=== PATIENT | male | born 1955 | race Caucasian/White ===

== ENCOUNTER → 2023-05-18 06:37 | Outpatient (REF) | payer BC, SELFPAY ==
[2023-05-18 07:49] LABS: % Basophils 0.5 % (0-2); % Eosinophils 4.5 % (0-6); % Immature Granulocytes 0.3 % (0-0.5); % Lymphocytes 16.8 % (20.5-51.1); % Monocytes 15.3 % (1.7-9.3); % Neutrophils 62.6 % (42.2-75.2); Absolute Eosinophils 0.3 10^3/uL (0-0.7); Absolute Monocytes 0.9 10^3/uL (0.1-0.6); Absolute Neutrophils 3.7 10^3/uL (1.4-6.5); Hematocrit 38.4 % (39.0-52.0); Hemoglobin 13.2 g/dL (13.0-18.0); Mean Corp Hgb Conc. 34.4 g/dL (33.0-37.0); Mean Corpuscular Hgb 31.4 pg (27.0-31.0); Mean Corpuscular Volume 91.4 fL (80.0-94.0); Nucleated Red Blood Cells % 0 % (-); Platelet Count 173 10^3/uL (130-400); Red Cell Dist. Width 12.8 % (11.5-14.5); White Blood Cell Count 5.8 10^3/uL (4.8-10.8)
[2023-05-18 08:02] LABS: ALT (SGPT) 18 U/L (0-50); AST (SGOT) 27 U/L (17-59); Albumin 4.3 g/dl (3.5-5.0); Alkaline Phosphatase 89 U/L (38-126); Blood Urea Nitrogen 43 mg/dl (9-20); Calcium 9.4 mg/dl (8.4-10.2); Carbon Dioxide 28 mmol/L (22-30); Chloride 100 mmol/L (98-107); Glucose 99 mg/dl (70-99); Potassium 4.2 mmol/L (3.5-5.1); Sodium 135 mmol/L (135-145); Total Bilirubin 1.6 mg/dl (0.2-1.3); eGFR 37.95
[2023-05-18 08:35] LABS: TSH Reflex To Free T4 3.28 uIU/ml (0.47-4.68)
== END ==
LOC: REG 06:37
PROVIDERS: ATTENDING PHYSICIAN Internal Medicine Hematology & Oncology; FAMILY PHYSICIAN Internal Medicine
DX: C64.2 Malignant neoplasm of left kidney, except renal pelvis (principal)
CPT/HCPCS: 36415; 80053; 84443; 85025

== ENCOUNTER → 2023-06-29 06:45 | Outpatient (REF) | payer BC, SELFPAY ==
[2023-06-29 07:27] LABS: % Basophils 0.6 % (0-2); % Eosinophils 4.8 % (0-6); % Immature Granulocytes 0.2 % (0-0.5); % Lymphocytes 20.6 % (20.5-51.1); % Monocytes 13.7 % (1.7-9.3); % Neutrophils 60.1 % (42.2-75.2); Absolute Eosinophils 0.3 10^3/uL (0-0.7); Absolute Lymphocytes 1.1 10^3/uL (1.2-3.4); Absolute Monocytes 0.7 10^3/uL (0.1-0.6); Absolute Neutrophils 3.3 10^3/uL (1.4-6.5); Hematocrit 41.2 % (39.0-52.0); Hemoglobin 14.1 g/dL (13.0-18.0); Mean Corp Hgb Conc. 34.2 g/dL (33.0-37.0); Mean Corpuscular Hgb 31.4 pg (27.0-31.0); Mean Corpuscular Volume 91.8 fL (80.0-94.0); Mean Platelet Volume 10.8 fL (7.4-10.4); Nucleated Red Blood Cells % 0 % (-); Platelet Count 178 10^3/uL (130-400); Red Blood Cell Count 4.49 10^6/uL (4.70-6.10); Red Cell Dist. Width 12.4 % (11.5-14.5); White Blood Cell Count 5.4 10^3/uL (4.8-10.8)
[2023-06-29 07:40] LABS: ALT (SGPT) 17 U/L (0-50); AST (SGOT) 24 U/L (17-59); Albumin 4.4 g/dl (3.5-5.0); Alkaline Phosphatase 92 U/L (38-126); Blood Urea Nitrogen 44 mg/dl (9-20); Calcium 9.6 mg/dl (8.4-10.2); Carbon Dioxide 29 mmol/L (22-30); Chloride 98 mmol/L (98-107); Glucose 98 mg/dl (70-99); Potassium 3.8 mmol/L (3.5-5.1); Sodium 138 mmol/L (135-145); Total Bilirubin 1.9 mg/dl (0.2-1.3); Total Protein 7.1 g/dl (6.3-8.2); eGFR 40.49
[2023-06-29 08:04] LABS: TSH 4.06 uIU/ml (0.47-4.68)
== END ==
LOC: REG 06:45
PROVIDERS: ATTENDING PHYSICIAN Internal Medicine Hematology & Oncology; FAMILY PHYSICIAN Internal Medicine
DX: C64.2 Malignant neoplasm of left kidney, except renal pelvis (principal)
CPT/HCPCS: 36415; 80053; 84443; 85025

== ENCOUNTER → 2023-08-10 06:39 | Outpatient (REF) | payer BC, SELFPAY ==
[2023-08-10 07:28] LABS: % Basophils 0.6 % (0-2); % Eosinophils 4.2 % (0-6); % Immature Granulocytes 0.2 % (0-0.5); % Lymphocytes 18.8 % (20.5-51.1); % Monocytes 10.9 % (1.7-9.3); % Neutrophils 65.3 % (42.2-75.2); Absolute Eosinophils 0.2 10^3/uL (0-0.7); Absolute Monocytes 0.6 10^3/uL (0.1-0.6); Absolute Neutrophils 3.6 10^3/uL (1.4-6.5); Hematocrit 42.1 % (39.0-52.0); Hemoglobin 14.1 g/dL (13.0-18.0); Mean Corp Hgb Conc. 33.5 g/dL (33.0-37.0); Mean Corpuscular Hgb 31.4 pg (27.0-31.0); Mean Corpuscular Volume 93.8 fL (80.0-94.0); Mean Platelet Volume 11.1 fL (7.4-10.4); Nucleated Red Blood Cells % 0 % (-); Platelet Count 157 10^3/uL (130-400); Red Blood Cell Count 4.49 10^6/uL (4.70-6.10); Red Cell Dist. Width 12.4 % (11.5-14.5); White Blood Cell Count 5.4 10^3/uL (4.8-10.8)
[2023-08-10 08:07] LABS: ALT (SGPT) 21 U/L (0-50); AST (SGOT) 25 U/L (17-59); Albumin 4.5 g/dl (3.5-5.0); Alkaline Phosphatase 84 U/L (38-126); Blood Urea Nitrogen 43 mg/dl (9-20); Calcium 9.9 mg/dl (8.4-10.2); Carbon Dioxide 29 mmol/L (22-30); Chloride 101 mmol/L (98-107); Glucose 101 mg/dl (70-99); Potassium 4.5 mmol/L (3.5-5.1); Sodium 136 mmol/L (135-145); Total Bilirubin 1.8 mg/dl (0.2-1.3); Total Protein 7.3 g/dl (6.3-8.2); eGFR 40.49
== END ==
LOC: REG 06:39
PROVIDERS: ATTENDING PHYSICIAN Internal Medicine Hematology & Oncology; FAMILY PHYSICIAN Internal Medicine
DX: C64.2 Malignant neoplasm of left kidney, except renal pelvis (principal)
CPT/HCPCS: 36415; 80053; 84443; 85025

== ENCOUNTER → 2023-09-21 06:39 | Outpatient (REF) | payer BC, SELFPAY ==
[2023-09-21 08:02] LABS: % Basophils 0.5 % (0-2); % Eosinophils 3.3 % (0-6); % Immature Granulocytes 0.3 % (0-0.5); % Lymphocytes 17.9 % (20.5-51.1); % Monocytes 12.4 % (1.7-9.3); % Neutrophils 65.6 % (42.2-75.2); Absolute Eosinophils 0.2 10^3/uL (0-0.7); Absolute Lymphocytes 1.1 10^3/uL (1.2-3.4); Absolute Monocytes 0.7 10^3/uL (0.1-0.6); Absolute Neutrophils 3.9 10^3/uL (1.4-6.5); Hematocrit 41.1 % (39.0-52.0); Hemoglobin 14.2 g/dL (13.0-18.0); Mean Corp Hgb Conc. 34.5 g/dL (33.0-37.0); Mean Corpuscular Hgb 31.3 pg (27.0-31.0); Mean Corpuscular Volume 90.5 fL (80.0-94.0); Mean Platelet Volume 11.1 fL (7.4-10.4); Nucleated Red Blood Cells % 0 % (-); Platelet Count 178 10^3/uL (130-400); Red Blood Cell Count 4.54 10^6/uL (4.70-6.10); Red Cell Dist. Width 12.5 % (11.5-14.5)
[2023-09-21 08:48] LABS: ALT (SGPT) 18 U/L (0-50); AST (SGOT) 25 U/L (17-59); Albumin 4.5 g/dl (3.5-5.0); Alkaline Phosphatase 90 U/L (38-126); Blood Urea Nitrogen 46 mg/dl (9-20); Carbon Dioxide 25 mmol/L (22-30); Chloride 100 mmol/L (98-107); Glucose 94 mg/dl (70-99); Sodium 138 mmol/L (135-145); Total Bilirubin 1.7 mg/dl (0.2-1.3); Total Protein 7.2 g/dl (6.3-8.2); eGFR 31.83
[2023-09-21 09:12] LABS: TSH 3.49 uIU/ml (0.47-4.68)
== END ==
LOC: REG 06:39
PROVIDERS: ATTENDING PHYSICIAN Internal Medicine Hematology & Oncology; FAMILY PHYSICIAN Internal Medicine
DX: C64.2 Malignant neoplasm of left kidney, except renal pelvis (principal)
CPT/HCPCS: 36415; 80053; 84443; 85025

== ENCOUNTER → 2023-10-15 06:49 | Outpatient (REF) | payer BC, SELFPAY ==
[2023-10-16 14:41] LABS: PSA Total 4.4 ng/mL (0.0-4.0)
== END ==
LOC: REG 06:49
PROVIDERS: ATTENDING PHYSICIAN Specialist; FAMILY PHYSICIAN Internal Medicine
DX: R97.20 Elevated prostate specific antigen [PSA] (principal)
CPT/HCPCS: 36415; 84153; 84154

== ENCOUNTER → 2023-11-02 06:25 | Outpatient (REF) | payer BC, SELFPAY ==
[2023-11-02 07:44] LABS: Hematocrit 39.9 % (39.0-52.0); Mean Corp Hgb Conc. 35.1 g/dL (33.0-37.0); Mean Corpuscular Hgb 31.8 pg (27.0-31.0); Mean Corpuscular Volume 90.7 fL (80.0-94.0); Red Cell Dist. Width 12.6 % (11.5-14.5); White Blood Cell Count 5.8 10^3/uL (4.8-10.8)
[2023-11-02 07:45] LABS: % Basophils 0.5 % (0-2); % Eosinophils 4.1 % (0-6); % Immature Granulocytes 0.2 % (0-0.5); % Lymphocytes 18.8 % (20.5-51.1); % Monocytes 11.3 % (1.7-9.3); % Neutrophils 65.1 % (42.2-75.2); Absolute Eosinophils 0.2 10^3/uL (0-0.7); Absolute Lymphocytes 1.1 10^3/uL (1.2-3.4); Absolute Monocytes 0.7 10^3/uL (0.1-0.6); Absolute Neutrophils 3.8 10^3/uL (1.4-6.5); Nucleated Red Blood Cells % 0 % (-)
[2023-11-02 07:58] LABS: ALT (SGPT) 19 U/L (0-50); AST (SGOT) 23 U/L (17-59); Albumin 4.2 g/dl (3.5-5.0); Alkaline Phosphatase 93 U/L (38-126); Blood Urea Nitrogen 41 mg/dl (9-20); Calcium 9.4 mg/dl (8.4-10.2); Carbon Dioxide 27 mmol/L (22-30); Chloride 100 mmol/L (98-107); Glucose 103 mg/dl (70-99); Sodium 137 mmol/L (135-145); Total Bilirubin 1.4 mg/dl (0.2-1.3); Total Protein 6.7 g/dl (6.3-8.2); eGFR 40.24
[2023-11-02 08:23] LABS: TSH Reflex To Free T4 3.71 uIU/ml (0.47-4.68)
== END ==
LOC: REG 06:25
PROVIDERS: ATTENDING PHYSICIAN Internal Medicine Hematology & Oncology; FAMILY PHYSICIAN Internal Medicine
DX: C64.2 Malignant neoplasm of left kidney, except renal pelvis (principal)
CPT/HCPCS: 36415; 80053; 84443; 85025

== ENCOUNTER → 2023-12-03 07:17 | Outpatient (REF) | payer BC, SELFPAY | LOC: RAD 07:17 | PROVIDERS: ATTENDING PHYSICIAN Nurse Practitioner Primary Care; FAMILY PHYSICIAN Internal Medicine; REFERRING PHYSICIAN Internal Medicine Hematology & Oncology | DX: C64.2 Malignant neoplasm of left kidney, except renal pelvis (principal) | CPT/HCPCS: 71260; 74160; Q9967 ==

== ENCOUNTER → 2023-12-18 06:36 | Outpatient (REF) | payer BC, SELFPAY ==
[2023-12-18 07:57] LABS: ALT (SGPT) 16 U/L (0-50); AST (SGOT) 22 U/L (17-59); Alkaline Phosphatase 83 U/L (38-126); Blood Urea Nitrogen 44 mg/dl (9-20); Calcium 9.5 mg/dl (8.4-10.2); Carbon Dioxide 28 mmol/L (22-30); Chloride 100 mmol/L (98-107); Glucose 106 mg/dl (70-99); Potassium 3.6 mmol/L (3.5-5.1); Sodium 141 mmol/L (135-145); Total Bilirubin 1.5 mg/dl (0.2-1.3); Total Protein 6.6 g/dl (6.3-8.2); eGFR 37.71
[2023-12-18 08:28] LABS: TSH Reflex To Free T4 3.58 uIU/ml (0.47-4.68)
[2023-12-18 09:15] LABS: % Basophils 0.5 % (0-2); % Eosinophils 5.5 % (0-6); % Immature Granulocytes 0.3 % (0-0.5); % Lymphocytes 16.5 % (20.5-51.1); % Monocytes 12.7 % (1.7-9.3); % Neutrophils 64.5 % (42.2-75.2); Absolute Eosinophils 0.4 10^3/uL (0-0.7); Absolute Lymphocytes 1.1 10^3/uL (1.2-3.4); Absolute Monocytes 0.8 10^3/uL (0.1-0.6); Absolute Neutrophils 4.3 10^3/uL (1.4-6.5); Hematocrit 39.7 % (39.0-52.0); Hemoglobin 13.5 g/dL (13.0-18.0); Mean Corpuscular Hgb 31.8 pg (27.0-31.0); Mean Corpuscular Volume 93.4 fL (80.0-94.0); Mean Platelet Volume 11.1 fL (7.4-10.4); Nucleated Red Blood Cells % 0 % (-); Platelet Count 174 10^3/uL (130-400); Red Blood Cell Count 4.25 10^6/uL (4.70-6.10); Red Cell Dist. Width 12.6 % (11.5-14.5); White Blood Cell Count 6.6 10^3/uL (4.8-10.8)
== END ==
LOC: REG 06:36
PROVIDERS: ATTENDING PHYSICIAN Internal Medicine Hematology & Oncology; FAMILY PHYSICIAN Internal Medicine
DX: C64.2 Malignant neoplasm of left kidney, except renal pelvis (principal)
CPT/HCPCS: 36415; 80053; 84443; 85025

== ENCOUNTER 2024-03-10 06:36 | Day surgery (SDC) | payer BC, SELFPAY | END 2024-03-10 08:47 | disposition home or self-care (01) | LOC: GI 06:36 | PROVIDERS: ATTENDING PHYSICIAN Internal Medicine Gastroenterology; FAMILY PHYSICIAN Internal Medicine | DX: Z12.11 Encounter for screening for malignant neoplasm of colon (principal); D12.2 Benign neoplasm of ascending colon; K63.89 Other specified diseases of intestine; K64.8 Other hemorrhoids; Z86.0101 Personal history of adenomatous and serrated colon polyps | CPT/HCPCS: 45385; 45380; 88305; 88312 ==

== ENCOUNTER → 2024-03-18 06:48 | Outpatient (REF) | payer BC, SELFPAY ==
[2024-03-18 08:25] LABS: ALT (SGPT) 18 U/L (0-50); AST (SGOT) 22 U/L (17-59); Albumin 4.4 g/dl (3.5-5.0); Alkaline Phosphatase 86 U/L (38-126); Blood Urea Nitrogen 40 mg/dl (9-20); Calcium 9.4 mg/dl (8.4-10.2); Carbon Dioxide 29 mmol/L (22-30); Chloride 101 mmol/L (98-107); Glucose 107 mg/dl (70-99); Potassium 4.4 mmol/L (3.5-5.1); Sodium 140 mmol/L (135-145); Total Bilirubin 1.3 mg/dl (0.2-1.3); Total Protein 7.1 g/dl (6.3-8.2); eGFR 35.46
[2024-03-18 08:48] LABS: TSH Reflex To Free T4 3.36 uIU/ml (0.47-4.68)
[2024-03-18 08:50] LABS: % Basophils 0.4 % (0-2); % Immature Granulocytes 0.4 % (0-0.5); % Lymphocytes 17.1 % (20.5-51.1); % Monocytes 12.4 % (1.7-9.3); % Neutrophils 65.7 % (42.2-75.2); Absolute Eosinophils 0.2 10^3/uL (0-0.7); Absolute Lymphocytes 0.9 10^3/uL (1.2-3.4); Absolute Monocytes 0.7 10^3/uL (0.1-0.6); Absolute Neutrophils 3.6 10^3/uL (1.4-6.5); Hematocrit 42.3 % (39.0-52.0); Hemoglobin 13.9 g/dL (13.0-18.0); Mean Corp Hgb Conc. 32.9 g/dL (33.0-37.0); Mean Corpuscular Hgb 30.5 pg (27.0-31.0); Mean Platelet Volume 10.8 fL (7.4-10.4); Nucleated Red Blood Cells % 0 % (-); Platelet Count 191 10^3/uL (130-400); Red Blood Cell Count 4.55 10^6/uL (4.70-6.10); Red Cell Dist. Width 12.3 % (11.5-14.5); White Blood Cell Count 5.5 10^3/uL (4.8-10.8)
== END ==
LOC: REG 06:48
PROVIDERS: ATTENDING PHYSICIAN Internal Medicine Hematology & Oncology; FAMILY PHYSICIAN Internal Medicine
DX: C64.2 Malignant neoplasm of left kidney, except renal pelvis (principal)
CPT/HCPCS: 36415; 80053; 84443; 85025

== ENCOUNTER → 2024-04-17 06:36 | Outpatient (REF) | payer BC, SELFPAY ==
[2024-04-18 10:19] LABS: PSA Total 5.2 ng/mL (0.0-4.0)
== END ==
LOC: REG 06:36
PROVIDERS: ATTENDING PHYSICIAN Specialist; FAMILY PHYSICIAN Internal Medicine
DX: R97.20 Elevated prostate specific antigen [PSA] (principal)
CPT/HCPCS: 36415; 84153; 84154

== ENCOUNTER 2024-05-17 10:55 | Emergency (ER) | payer BC, SELFPAY ==
[2024-05-17 11:02] VITALS: BP 119/65
[2024-05-17 11:27] LABS: % Basophils 0.2 % (0-2); % Immature Granulocytes 0.2 % (0-0.5); % Lymphocytes 6.9 % (20.5-51.1); % Neutrophils 82.7 % (42.2-75.2); Absolute Lymphocytes 0.6 10^3/uL (1.2-3.4); Absolute Monocytes 0.9 10^3/uL (0.1-0.6); Absolute Neutrophils 7.4 10^3/uL (1.4-6.5); Hematocrit 37.5 % (39.0-52.0); Hemoglobin 12.9 g/dL (13.0-18.0); Mean Corp Hgb Conc. 34.4 g/dL (33.0-37.0); Mean Corpuscular Hgb 30.2 pg (27.0-31.0); Mean Corpuscular Volume 87.8 fL (80.0-94.0); Mean Platelet Volume 10.6 fL (7.4-10.4); Nucleated Red Blood Cells % 0 % (-); Platelet Count 151 10^3/uL (130-400); Red Blood Cell Count 4.27 10^6/uL (4.70-6.10); Red Cell Dist. Width 13.4 % (11.5-14.5); White Blood Cell Count 8.9 10^3/uL (4.8-10.8)
[2024-05-17 11:43] LABS: COVID-19 Antigen Negative (Negative)
--- NOTE | 2024-05-17 14:07 | ED.GENMED ---
History of Present Illness
General
Chief Complaint: Fainting/Passed Out
Source: patient
Exam Limitations: none
Time Seen by Provider: 05/17/24 13:51
History of Present Illness
History of Present Illness:
68-year-old male with history of hypertension presents via EMS from urgent care after having syncopal episode. He has been sick for 2 days including fatigue cough sweats with fever myalgias. He was at an urgent care center today waiting to be seen
sitting in the chair and passed out. He was caught before he hit the ground. He woke up and was talking soon after this. Currently he notes fatigue. He notes chest tightness and is prone to bronchitis.
No other complaints at this time
Past History
Past History
ED Past Medical History: HTN
ED Past Surgical History: Other (Oral surgery 2 years old)
Social History
Tobacco: Non-smoker
Alcohol: None
Drug: None
Living: with family
Phy Exam
Physical Exam
Physical Exam:
General: Well-appearing male no acute respiratory distress
HEENT: Normocephalic atraumatic neck is supple
Heart: Regular rate and rhythm
Lungs: Coarse bilaterally
Extremities: No cyanosis or edema
Course
Orders/Labs/Results
Orders:
Orders
05/17/24 10:59
EKG [Electrocardiogram (*1)] Urgent
Reason for Study: Syncope
05/17/24 11:00
EKG- Treatment ONCE
05/17/24 11:15
COVID-19 Antigen Urgent
Source: Nasal Swab
Complete Blood Count/With Diff Urgent
Influenza A+B Rapid Molecular Urgent
LAINE Source: Nasal Swab
Specimen Description:
05/17/24 14:00
0.9% Sodium Chloride 1000 ml [Nss] 1,000 ml IV BOLUS
Ipratropium/Albuterol Sulfate [Duoneb] 3 ml INH R NOW STA
CR Chest - 2 Views Urgent
Comment:
Reason For Exam: cough
05/17/24 14:05
Acetaminophen [Tylenol] 1,000 mg PO NOW STA
05/17/24 14:51
Comprehensive Metabolic Panel Urgent
Troponin I Urgent
Abnormal Lab Results
05/17/24 05/17/24
11:15 14:51
RBC 4.27 L 10^6/uL
(4.70-6.10)
Hgb 12.9 L g/dL
(13.0-18.0)
Hct 37.5 L %
(39.0-52.0)
MPV 10.6 H fL
(7.4-10.4)
Absolute Neuts (auto) 7.4 H 10^3/uL
(1.4-6.5)
Absolute Lymphs (auto) 0.6 L 10^3/uL
(1.2-3.4)
Absolute Monos (auto) 0.9 H 10^3/uL
(0.1-0.6)
Neutrophils % 82.7 H %
(42.2-75.2)
Lymphocytes % 6.9 L %
(20.5-51.1)
Monocytes % 10.0 H %
(1.7-9.3)
Sodium 134 L mmol/L
(135-145)
Carbon Dioxide 21 L mmol/L
(22-30)
BUN 45 H mg/dl
(9-20)
Creatinine 2.1 H mg/dL
(0.7-1.3)
Glucose 115 H mg/dl
(70-99)
Total Bilirubin 1.6 H mg/dl
(0.2-1.3)
05/17/24 11:15
05/17/24 14:51
Vital Signs
Initial and Last Documented VS:
Initial Vital Signs
Temp Pulse Resp BP Pulse Ox
100.7 F H 68 20 119/65 96
05/17/24 11:02 05/17/24 11:02 05/17/24 11:02 05/17/24 11:02 05/17/24 11:02
Last Documented Vital Signs
Temp Pulse Resp BP Pulse Ox
100.7 F H 77 15 112/63 93
05/17/24 11:02 05/17/24 15:25 05/17/24 15:25 05/17/24 15:25 05/17/24 15:25
MDM/Problems Addressed
Differential Diagnosis Includes:
Patient presents after syncopal episode. He has had symptoms prior to this including cough fatigue. No chest pain.
Question dehydration versus electrolyte abnormality versus vasovagal event. He does describe nausea after the syncopal episode. He has been with a fever. Tylenol has not been bringing his fever down completely
EKG shows sinus bradycardia with a rate of 57 but in the room he has a heart rate in the 60s. Will hydrate and try DuoNeb to help his breathing. X-ray of chest pending. He did test positive for influenza. I suspect his syncopal episode more
likely related to his illness rather than cardiac event or arrhythmia
*Critical Care Note
Total Time (30-74mins, 75-104mins- exclusive of procedures): Not Applicable
Update Note
Update Note:
Patient feeling and appearing much better upon reassessment. No arrhythmias on monitor. Chest x-ray clear. Patient has baseline kidney dysfunction secondary to having 1 kidney. His levels are stable. Patient was hydrated here he does feel
somewhat more clear after nebulizer. Recommended supportive care at home stable for discharge
ED Attending Note
-
Portions of this chart may have been created with voice recognition software.� Occasional wrong word or��sound alike� substitutions may have occurred due to the inherent limitations of voice recognition software.
Discharge Plan
Departure
Patient with high blood pressure during this ER visit?: No
Discharge Problem:
Syncope, Influenza A
Instructions: Syncope (Fainting) (DC), Flu in adults - Discharge instructions
Prescriptions:
No Action
ketoconazole 2 % Shampoo
1 applic TOPICAL WESA
hydrochlorothiazide 25 mg Tablet
25 mg PO DAILY
fluocinonide 0.05 % Solution
1 applic TOPICAL WESA
acetaminophen [Tylenol] 325 mg Tablet
650 mg PO Q4HPRN PRN (Reason: MILD PAIN)
ramipril 5 mg Capsule
5 mg PO DAILY
tramadol 50 mg tablet
50 mg PO TIDPRN PRN (Reason: severe pain)
Referrals:
Christoph Hdz I., DO [Family Provider] -
Activity Restrictions/Additional Instructions:
Rest. Continue with fever control with Tylenol. Stay hydrated. Return if worse otherwise follow-up with your doctor
Interventions
Interventions:
*Risk Screen - Suicide Last Done: 05/17/24 11:02
*General Assessment Last Done: 05/17/24 11:02
*Neglect/Abuse Screening Last Done: 05/17/24 11:02
*ED COVID-19 Vaccine History Last Done: 05/17/24 11:02
Discharge Date and Time
Print Language: [place]
[2024-05-17] MEDS: DUONEB 3 ML INH (14:48)
[2024-05-17] MEDS: TYLENOL 1000 MG PO (14:48)
[2024-05-17] MEDS: NSS 1000 IV (14:49)
[2024-05-17 15:18] LABS: ALT (SGPT) 30 U/L (0-50); AST (SGOT) 33 U/L (17-59); Albumin 4.3 g/dl (3.5-5.0); Alkaline Phosphatase 75 U/L (38-126); Blood Urea Nitrogen 45 mg/dl (9-20); Calcium 8.5 mg/dl (8.4-10.2); Carbon Dioxide 21 mmol/L (22-30); Chloride 100 mmol/L (98-107); Glucose 115 mg/dl (70-99); Potassium 3.8 mmol/L (3.5-5.1); Sodium 134 mmol/L (135-145); Total Bilirubin 1.6 mg/dl (0.2-1.3); Total Protein 6.5 g/dl (6.3-8.2); eGFR 33.45
[2024-05-17 15:23] LABS: Troponin I 0.023 ng/ml
[2024-05-17 15:25] VITALS: BP 112/63
== END 2024-05-17 16:07 | disposition home or self-care (01) ==
LOC: EMR 10:55
PROVIDERS: EMERGENCY PHYSICIAN Emergency Medicine; FAMILY PHYSICIAN Internal Medicine
DX: J10.1 Influenza due to other identified influenza virus with other respiratory manifestations (principal); R55 Syncope and collapse; Z11.52 Encounter for screening for COVID-19
CPT/HCPCS: 99285; 96360; 94640; 71046; 80053; 84484; 85025; 87502; 87811; 93005

== ENCOUNTER → 2024-06-11 06:45 | Outpatient (REF) | payer BC, SELFPAY ==
[2024-06-11 07:32] LABS: % Basophils 0.2 % (0-2); % Eosinophils 3.3 % (0-6); % Immature Granulocytes 0.2 % (0-0.5); % Lymphocytes 17.7 % (20.5-51.1); % Monocytes 11.7 % (1.7-9.3); % Neutrophils 66.9 % (42.2-75.2); Absolute Eosinophils 0.2 10^3/uL (0-0.7); Absolute Lymphocytes 1.1 10^3/uL (1.2-3.4); Absolute Monocytes 0.7 10^3/uL (0.1-0.6); Hematocrit 41.7 % (39.0-52.0); Hemoglobin 13.6 g/dL (13.0-18.0); Mean Corp Hgb Conc. 32.6 g/dL (33.0-37.0); Mean Corpuscular Hgb 30.8 pg (27.0-31.0); Mean Corpuscular Volume 94.3 fL (80.0-94.0); Nucleated Red Blood Cells % 0 % (-); Platelet Count 189 10^3/uL (130-400); Red Blood Cell Count 4.42 10^6/uL (4.70-6.10); Red Cell Dist. Width 13.2 % (11.5-14.5)
[2024-06-11 09:00] LABS: ALT (SGPT) 29 U/L (0-50); AST (SGOT) 23 U/L (17-59); Albumin 4.6 g/dl (3.5-5.0); Alkaline Phosphatase 128 U/L (38-126); Blood Urea Nitrogen 42 mg/dl (9-20); Calcium 9.7 mg/dl (8.4-10.2); Carbon Dioxide 24 mmol/L (22-30); Chloride 100 mmol/L (98-107); Glucose 113 mg/dl (70-99); Potassium 4.1 mmol/L (3.5-5.1); Sodium 138 mmol/L (135-145); Total Bilirubin 1.5 mg/dl (0.2-1.3); eGFR 40.24
== END ==
LOC: REG 06:45
PROVIDERS: ATTENDING PHYSICIAN Internal Medicine Hematology & Oncology; FAMILY PHYSICIAN Internal Medicine
DX: C64.2 Malignant neoplasm of left kidney, except renal pelvis (principal)
CPT/HCPCS: 36415; 80053; 85025

== ENCOUNTER → 2024-06-13 07:16 | Outpatient (REF) | payer BC, SELFPAY | LOC: RAD 07:16 | PROVIDERS: ATTENDING PHYSICIAN Nurse Practitioner Primary Care; FAMILY PHYSICIAN Internal Medicine; REFERRING PHYSICIAN Internal Medicine Hematology & Oncology | DX: C64.2 Malignant neoplasm of left kidney, except renal pelvis (principal) | CPT/HCPCS: 71260; 74160; Q9967 ==

== ENCOUNTER → 2024-10-13 06:38 | Outpatient (REF) | payer BC, SELFPAY ==
[2024-10-14 17:19] LABS: PSA Total 4.5 ng/mL (0.0-4.0)
== END ==
LOC: REG 06:38
PROVIDERS: ATTENDING PHYSICIAN Specialist; FAMILY PHYSICIAN Internal Medicine
DX: R97.20 Elevated prostate specific antigen [PSA] (principal)
CPT/HCPCS: 36415; 84153; 84154

== ENCOUNTER → 2024-12-04 06:45 | Outpatient (REF) | payer BC, SELFPAY ==
[2024-12-04 08:02] LABS: Hematocrit 39.6 % (39.0-52.0); Hemoglobin 13.4 g/dL (13.0-18.0); Mean Corp Hgb Conc. 33.8 g/dL (33.0-37.0); Mean Corpuscular Volume 92.1 fL (80.0-94.0); Nucleated Red Blood Cells % 0 % (-); Platelet Count 166 10^3/uL (130-400); Red Cell Dist. Width 12.7 % (11.5-14.5)
[2024-12-04 09:11] LABS: ALT (SGPT) 22 U/L (0-50); AST (SGOT) 21 U/L (17-59); Albumin 4.4 g/dl (3.5-5.0); Alkaline Phosphatase 101 U/L (38-126); Blood Urea Nitrogen 40 mg/dl (9-20); Calcium 9.5 mg/dl (8.4-10.2); Carbon Dioxide 22 mmol/L (22-30); Chloride 106 mmol/L (98-107); Glucose 100 mg/dl (70-99); HDL Cholesterol 38 mg/dl; LDL Cholesterol, Calculated 107 mg/dl; Potassium 3.7 mmol/L (3.5-5.1); Sodium 139 mmol/L (135-145); Total Protein 7.1 g/dl (6.3-8.2); Very Low Density Lipoprotein 42 mg/dl (0-30); eGFR 42.83
[2024-12-04 10:15] LABS: PSA, Total - Screen 4.23 ng/ml (0.0-4.0)
== END ==
LOC: REG 06:45
PROVIDERS: ATTENDING PHYSICIAN Internal Medicine
DX: E78.2 Mixed hyperlipidemia (principal); I10 Essential (primary) hypertension; N28.89 Other specified disorders of kidney and ureter; R97.20 Elevated prostate specific antigen [PSA]
CPT/HCPCS: 36415; 80053; 80061; 84443; 85025; G0103

== ENCOUNTER → 2024-12-25 06:34 | Outpatient (REF) | payer BC, SELFPAY ==
[2024-12-25 07:21] LABS: Hematocrit 39.9 % (39.0-52.0); Hemoglobin 13.8 g/dL (13.0-18.0); Mean Corp Hgb Conc. 34.6 g/dL (33.0-37.0); Mean Corpuscular Volume 91.1 fL (80.0-94.0); Nucleated Red Blood Cells % 0 % (-); Platelet Count 193 10^3/uL (130-400); Red Cell Dist. Width 12.6 % (11.5-14.5)
[2024-12-25 07:49] LABS: ALT (SGPT) 20 U/L (0-50); AST (SGOT) 19 U/L (17-59); Albumin 4.3 g/dl (3.5-5.0); Alkaline Phosphatase 103 U/L (38-126); Blood Urea Nitrogen 37 mg/dl (9-20); Calcium 9.6 mg/dl (8.4-10.2); Carbon Dioxide 22 mmol/L (22-30); Chloride 107 mmol/L (98-107); Glucose 103 mg/dl (70-99); Potassium 4.0 mmol/L (3.5-5.1); Sodium 138 mmol/L (135-145); Total Protein 7.4 g/dl (6.3-8.2); eGFR 42.83
== END ==
LOC: REG 06:34
PROVIDERS: ATTENDING PHYSICIAN Internal Medicine Hematology & Oncology; FAMILY PHYSICIAN Internal Medicine
DX: C64.2 Malignant neoplasm of left kidney, except renal pelvis (principal)
CPT/HCPCS: 36415; 80053; 85025

== ENCOUNTER 2024-12-30 11:19 | Emergency (ER) | payer BC, SELFPAY ==
[2024-12-30] VITALS (10 sets, daily range): BP systolic 169–211; BP diastolic 92–109; BMI 27.7
[2024-12-30 11:43] LABS: Hematocrit 43.9 % (39.0-52.0); Hemoglobin 14.8 g/dL (13.0-18.0); Mean Corp Hgb Conc. 33.7 g/dL (33.0-37.0); Mean Corpuscular Volume 91.6 fL (80.0-94.0); Nucleated Red Blood Cells % 0 % (-); Platelet Count 170 10^3/uL (130-400); Red Cell Dist. Width 12.3 % (11.5-14.5)
[2024-12-30 12:06] LABS: ALT (SGPT) 18 U/L (0-50); AST (SGOT) 24 U/L (17-59); Albumin 4.8 g/dl (3.5-5.0); Alkaline Phosphatase 92 U/L (38-126); Blood Urea Nitrogen 41 mg/dl (9-20); Calcium 9.5 mg/dl (8.4-10.2); Carbon Dioxide 28 mmol/L (22-30); Chloride 100 mmol/L (98-107); Glucose 140 mg/dl (70-99); Potassium 4.4 mmol/L (3.5-5.1); Sodium 138 mmol/L (135-145); Total Protein 8.3 g/dl (6.3-8.2); eGFR 49.77
--- NOTE | 2024-12-30 13:23 | ED.GENMED ---
History of Present Illness
General
Chief Complaint: Dehydration Symptoms
Source: patient and spouse
Time Seen by Provider: 12/30/24 13:05
History of Present Illness
History of Present Illness:
This patient is a 69-year-old male who states that he developed a 'cold' approximately 3 weeks ago, which resolved but was followed by a cough which is also now fully resolved. However, on he developed slight 'sore' feeling of his right
ear, slight sore throat, and hiccups. He also noted a low-grade subjective fever on Sunday and Sunday night. By Sunday morning, he went to an urgent care, had a chest x-ray with that was negative, and was diagnosed with right sided otitis media.
He was prescribed Augmentin, 500 mg 3 times daily. Since that time, patient describes anorexia, vomiting, and overall nonfocal weakness. He denies neck pain, chest pain, dyspnea, photophobia, urinary symptoms, abdominal pain. His bowel movements
are normal without blood or black stool. He denies a headache. His ear pain is almost fully resolved. Patient denies a sense of spinning or vertigo, feeling off balance, difficulty walking, tinnitus, recent trauma.
Past History
Past History
ED Past Medical History: HTN
ED Past Surgical History: Urological (Nephrectomy) and Other (Oral surgery 2 years old)
Social History
Tobacco: Non-smoker
Alcohol: None
Drug: None
Personal:
Living: with family
Phy Exam
Physical Exam
Physical Exam:
GENERAL: Alert , in no apparent distress
EYE: pupils equal and reactive, no photophobia, no nystagmus, EOMI
NECK: Supple, no significant adenopathy.
ENT: o/p clr, mm dry, no trismus, no drool, voice clear. Left TM normal. Right ear exam no abnormalities of pinna/auricle. External auditory canal with a small friable soft tissue nodule, otherwise canal without swelling, exudate, etc. TM
intact with suspected hemotympanum
CARDIAC: Regular rate and rhythm .
LUNGS: Clear breath sounds bilaterally, no acute respiratory distress, no wheezes/rales/rhonchi
ABDOMEN: Soft, without focal tenderness, no r/g, no cvat
NEUROLOGICAL: Alert and oriented, no focal neuro deficits
SKIN: Warm and dry, skin intact.
MUSCULOSKELETAL: No edema, well perfused.
PSYCH: Normal and appropriate interaction.
Course
Orders/Labs/Results
Orders:
Orders
12/30/24 11:25
Electrocardiogram (*1) Urgent
Reason for Study: Hypertension, Benign
12/30/24 11:26
EKG- Treatment ONCE
12/30/24 11:32
CMP [Comprehensive Metabolic Panel] Urgent
Complete Blood Count/With Diff Urgent
12/30/24 13:22
0.9% Sodium Chloride 1000 ml [Nss] 1,000 ml IV BOLUS
12/30/24 13:33
COVID-19 Antigen Urgent
Source: Nasal Swab
Influenza A+B Rapid Molecular Urgent
LAINE Source: Nasal Swab
Specimen Description:
12/30/24 15:36
Ondansetron Injectable [Zofran] 4 mg .ROUTE .STK-MED ONE
12/30/24 15:44
Ondansetron Injectable [Zofran] 4 mg IV NOW STA
12/30/24 15:45
0.9% Sodium Chloride 1000 ml [Nss] 1,000 ml IV BOLUS
12/30/24 18:53
Amoxicillin [Amoxil] 500 mg PO NOW STA
Ciprofloxacin HCl [Cipro] 2 dropperett OTIC NOW STA
Abnormal Lab Results
12/30/24
11:32
Absolute Lymphs (auto) 1.1 L 10^3/uL
(1.2-3.4)
Absolute Monos (auto) 0.7 H 10^3/uL
(0.1-0.6)
Neutrophils % 78.0 H %
(42.2-75.2)
Lymphocytes % 12.8 L %
(20.5-51.1)
BUN 41 H mg/dl
(9-20)
Creatinine 1.5 H mg/dL
(0.7-1.3)
Glucose 140 H mg/dl
(70-99)
Total Bilirubin 1.8 H mg/dl
(0.2-1.3)
Total Protein 8.3 H g/dl
(6.3-8.2)
12/30/24 11:32
12/30/24 11:32
Vital Signs
Initial and Last Documented VS:
Initial Vital Signs
Temp Pulse Resp BP Pulse Ox
98.6 F 57 18 187/109 96
12/30/24 11:20 12/30/24 11:20 12/30/24 11:20 12/30/24 11:20 12/30/24 11:20
Last Documented Vital Signs
Temp Pulse Resp BP Pulse Ox
98.6 F 57 18 171/94 96
12/30/24 11:20 12/30/24 11:20 12/30/24 11:20 12/30/24 18:00 12/30/24 18:30
*Pulse Oximetry
SaO2: 96
Oxygen Mode of Delivery: Room air
Patient hypoxic: no
*Critical Care Note
Total Time (30-74mins, 75-104mins- exclusive of procedures): Not Applicable
Update Note
Update Note:
Patient presents to the Emergency Department with ____anorexia, weakness, vomiting
Number and Complexity of Problems Addressed at the Encounter
� Chronic conditions affecting care:
� Acute Exacerbation and/or Progression of Chronic Illness:
� Differential Diagnosis includes: But not limited to dehydration, medication effect, renal insufficiency, etc. etc.
Amount and/or Complexity of Data to be Reviewed and Analyzed
� I performed an independent evaluation of and my interpretation is:
EKG:
CT:
Xrays:
Laboratory Studies: Creatinine at baseline, white blood cell count normal
Other:
� Review of other/old records reveals:
� Clinical information was obtained by an independent historian: who is bedside and very informative
� Prescriptions/Medications Considered but not given:
� Further testing considered but not performed:
Risk of Complications and/or Morbidity or Mortality of Patient Management
� Social determinants of health affecting care:
� Discussion with other providers (PCP, Hospitalists, Consultants, etc):
� Escalation of care including admission/observation vs risk of discharge considered: Patient presents with generalized weakness nausea vomiting and anorexia, particularly since starting Augmentin. Suspicion that this may be
related to the medication. His right ear exam is remarkable and I hilary a picture on the whiteboard to describe my findings and the importance of ENT follow-up. Will prescribe otic drops, consideration of changing Augmentin to amoxicillin which she
has tolerated in the past. IV fluids started.
6:54 PM multiple reassessments here. Patient did have 1 episode of vomiting, that is since resolved and is tolerating p.o. here. He was able to walk to the bathroom without difficulty and reports feeling remarkably better. He denies chest pain,
shortness of breath, headache, dizziness. Long discussion with patient and regarding what I visualized on exam, risk and benefits of resuming p.o. antibiotics etc. confirmed with prior records that patient has taken amoxicillin in the
past without difficulty or symptoms. Suspect patient should avoid however Augmentin. Understanding risk, decision made to change prescription to amoxicillin and to add Ciprodex with close ENT follow-up.
ED Attending Note
-
Portions of this chart may have been created with voice recognition software.� Occasional wrong word or��sound alike� substitutions may have occurred due to the inherent limitations of voice recognition software.
Discharge Plan
Departure
Patient Disposition: Home (Routine Discharge)
Date of Disposition: 12/30/24
Time of Disposition: 18:55
Patient with high blood pressure during this ER visit?: Yes
Condition: Good
Discharge Problem:
Otitis media, Dehydration
Instructions: Dehydration, Adult (DC), Ear infections in adults, BLOOD PRESSURE
Prescriptions:
New
ciprofloxacin-dexamethasone 0.3-0.1 % drops,suspension
4 drp otic (ear) BID 7 Days Qty: 7.5 0RF
amoxicillin 875 mg tablet
875 mg PO BID Qty: 10 0RF
No Action
ketoconazole 2 % Shampoo
1 applic TOPICAL WESA
hydrochlorothiazide 25 mg Tablet
25 mg PO DAILY
fluocinonide 0.05 % Solution
1 applic TOPICAL WESA
acetaminophen [Tylenol] 325 mg Tablet
650 mg PO Q4HPRN PRN (Reason: MILD PAIN)
ramipril 5 mg Capsule
5 mg PO DAILY
tramadol 50 mg tablet
50 mg PO TIDPRN PRN (Reason: severe pain)
Referrals:
Christoph Hdz I., [Family Provider, Internal Medicine]
Remi Brito, [Active, ENT] - Follow up in 2-3 days
Activity Restrictions/Additional Instructions:
IF YOU DEVELOP LIP OR TONGUE SWELLING, TROUBLE BREATHING, CHEST PAIN, REPEATED VOMITING, DIZZINESS OR SENSE OF SPINNING, SEVERE HEADACHE, GET WORSE, DO NOT GET BETTER, OR OTHER WORRISOME SIGNS, PLEASE RETURN TO THE ER IMMEDIATELY!
Interventions
Interventions:
*Risk Screen - Suicide Last Done: 12/30/24 16:41
*General Assessment Last Done: 12/30/24 13:47
*Neglect/Abuse Screening Last Done: 12/30/24 16:41
*ED- Fall Risk Assessment Last Done: 12/30/24 13:47
*ED COVID-19 Vaccine History Last Done: 12/30/24 13:47
ED- Cardiac Assessment Last Done: 12/30/24 14:28
ED- Neurological Assessment Last Done: 12/30/24 14:28
ED- Pulmonary Assessment Last Done: 12/30/24 14:28
Discharge Date and Time
Print Language: MOLDOV[place]
[2024-12-30] MEDS: NSS 1000 IV ×2 (13:48→15:45)
[2024-12-30 14:21] LABS: COVID-19 Antigen Negative (Negative)
[2024-12-30] MEDS: ZOFRAN 4 MG IV (15:44)
[2024-12-30] MEDS: CIPRO 2 DROPPERETT OTIC (19:05)
[2024-12-30] MEDS: AMOXIL 500 MG PO (19:05)
== END 2024-12-30 19:16 | disposition home or self-care (01) ==
LOC: EMR 11:19
PROVIDERS: Emergency Medicine; EMERGENCY PHYSICIAN Emergency Medicine; FAMILY PHYSICIAN Internal Medicine
DX: H66.91 Otitis media, unspecified, right ear (principal); E86.0 Dehydration; I10 Essential (primary) hypertension; Z11.52 Encounter for screening for COVID-19
CPT/HCPCS: 99284; 96374; 96361; 80053; 85025; 87502; 87811; 93005

== ENCOUNTER → 2025-01-13 08:37 | Outpatient (REF) | payer BC, SELFPAY | LOC: HWRAD 08:37 | PROVIDERS: ATTENDING PHYSICIAN Nurse Practitioner Adult Health; FAMILY PHYSICIAN Internal Medicine; REFERRING PHYSICIAN Student in an Organized Health Care Education/Training Program | DX: H66.011 Acute suppurative otitis media with spontaneous rupture of ear drum, right ear (principal); R29.810 Facial weakness; H92.01 Otalgia, right ear | CPT/HCPCS: 70480 ==

== ENCOUNTER → 2025-02-26 06:44 | Outpatient (REF) | payer BC, SELFPAY ==
[2025-02-26 07:55] LABS: Iron 113 ug/dl (49-181)
[2025-02-26 08:05] LABS: Total Iron Binding Capacity 313 ug/dl (261-462)
[2025-02-26 08:28] LABS: Ferritin 306.0 ng/ml (17.9-464.0)
[2025-02-26 09:00] LABS: Folate 12.4 ng/ml (2.76-20); Vitamin B12 668 pg/ml (239-931)
[2025-02-28 09:43] LABS: EBV-EA (D) Ab IgG >150.0 U/mL (<=8.9); EBV-NA IgG >600.0 U/mL (<=17.9); EBV-VCA IgG Antibodies >750.0 U/mL (<=17.9); EBV-VCA IgM Antibodies 23.9 U/mL (<=35.9)
== END ==
LOC: REG 06:44
PROVIDERS: ATTENDING PHYSICIAN Student in an Organized Health Care Education/Training Program; FAMILY PHYSICIAN Internal Medicine
DX: B37.0 Candidal stomatitis (principal)
CPT/HCPCS: 36415; 82607; 82728; 82746; 83540; 83550; 86663; 86664; 86665

== ENCOUNTER → 2025-03-03 06:39 | Outpatient (REF) | payer BC, SELFPAY ==
[2025-03-03 11:02] LABS: Glycohemoglobin (HgbA1c) 5.7 % (4.0-5.9)
== END ==
LOC: REG 06:39
PROVIDERS: ATTENDING PHYSICIAN Student in an Organized Health Care Education/Training Program; FAMILY PHYSICIAN Internal Medicine
DX: B37.0 Candidal stomatitis (principal)
CPT/HCPCS: 36415; 83036